=== PATIENT | female | born 1990 ===

== ENCOUNTER 2021-05-17 15:13 | Outpatient (CLI) | payer OTHER | END 2021-05-17 16:00 | disposition home or self-care (01) | LOC: PRENATAL 15:13 | PROVIDERS: ATTEND Obstetrics & Gynecology Maternal & Fetal Medicine | DX: O35.0XX1 Maternal care for (suspected) central nervous system malformation in fetus, fetus 1 (principal); O35.3XX1 Maternal care for (suspected) damage to fetus from viral disease in mother, fetus 1; O98.512 Other viral diseases complicating pregnancy, second trimester; O24.410 Gestational diabetes mellitus in pregnancy, diet controlled; Z36.89 Encounter for other specified antenatal screening; Z3A.25 25 weeks gestation of pregnancy ==

== ENCOUNTER 2021-06-29 11:14 | Outpatient (CLI) | payer OTHER | END 2021-06-29 11:52 | disposition home or self-care (01) | LOC: PRENATAL 11:14 | PROVIDERS: ATTEND Obstetrics & Gynecology Maternal & Fetal Medicine | DX: O26.843 Uterine size-date discrepancy, third trimester (principal); O24.410 Gestational diabetes mellitus in pregnancy, diet controlled; Z36.89 Encounter for other specified antenatal screening; Z3A.30 30 weeks gestation of pregnancy ==

== ENCOUNTER 2021-08-08 15:49 | Outpatient (CLI) | payer OTHER | END 2021-08-08 17:10 | disposition home or self-care (01) | LOC: PRENATAL 15:49 | PROVIDERS: ATTEND Obstetrics & Gynecology Maternal & Fetal Medicine | DX: O26.843 Uterine size-date discrepancy, third trimester (principal); O24.410 Gestational diabetes mellitus in pregnancy, diet controlled; O36.8131 Decreased fetal movements, third trimester, fetus 1; O35.0XX1 Maternal care for (suspected) central nervous system malformation in fetus, fetus 1; Z36.89 Encounter for other specified antenatal screening; Z3A.37 37 weeks gestation of pregnancy ==

== ENCOUNTER 2021-08-19 11:15 | Inpatient (IN) | payer OTHER ==
[~2021-08-19] VITALS: Ht 170.2 cm; Wt 3.2 kg
[2021-08-29] MEDS ORDERED: PRENATAL CAPLE1 EAC1 PO (08:03)
[2021-08-29] MEDS ORDERED: FOLIC ACID0.8 M1 PO (08:04)
== END 2021-09-01 20:13 | disposition home or self-care (01) | DRG 788 ==
LOC: LDR 08-29 07:34 → SURG-SUITE 08-29 07:34 → SURH 08-29 11:15 → SURG-SUITE 08-29 18:30
PROVIDERS: ADMIT Obstetrics & Gynecology; ATTEND Obstetrics & Gynecology
PROC: 4A1HXCZ Monitoring of Products of Conception, Cardiac Rate, External Approach (ICD-10-PCS; 2021-08-29)
PROC: 3E033VJ Introduction of Other Hormone into Peripheral Vein, Percutaneous Approach (ICD-10-PCS; 2021-08-29)
PROC: 10D00Z1 Extraction of Products of Conception, Low, Open Approach (ICD-10-PCS; principal; 2021-08-29 17:00)
DX: O61.0 Failed medical induction of labor (principal); O62.0 Primary inadequate contractions; O24.410 Gestational diabetes mellitus in pregnancy, diet controlled; Z3A.38 38 weeks gestation of pregnancy; Z37.0 Single live birth; Z20.822 Contact with and (suspected) exposure to COVID-19

== ENCOUNTER 2022-02-27 21:20 | Emergency (ER) | payer OTHER ==
[~2022-02-27] VITALS: Ht 167.6 cm; Wt 70.8 kg
[~2022-02-27 21:20] MED LIST: FOLIC ACID0.8 M1 PO; PRENATAL CAPLE1 EAC1 PO
[2022-02-28] MEDS ORDERED: CIPRO500 MG PO (04:45)
[2022-02-28] MEDS ORDERED: NAPROXEN375 MG PO (04:45)
== END 2022-02-28 05:01 | disposition home or self-care (01) ==
LOC: ER 21:20
DX: R10.2 Pelvic and perineal pain (principal); N39.0 Urinary tract infection, site not specified; Z88.2 Allergy status to sulfonamides

== ENCOUNTER 2022-05-29 22:12 | Emergency (ER) | payer OTHER ==
[~2022-05-29] VITALS: Ht 170.2 cm; Wt 64.4 kg
[~2022-05-29 22:12] MED LIST changes: +CIPRO500 MG PO; +NAPROXEN375 MG PO
[2022-05-30] MEDS ORDERED: PEPCID AC20 MG PO (07:19)
[2022-05-30] MEDS ORDERED: DICLOFENAC POTA25 MG PO (07:19)
[2022-05-30] MEDS ORDERED: LEVSIN0.125 MG PO (07:19)
[2022-05-30] MEDS ORDERED: LEVOFLOXACIN500 MG PO (07:22)
== END 2022-05-30 07:31 | disposition home or self-care (01) ==
LOC: ER 22:12
DX: I88.0 Nonspecific mesenteric lymphadenitis (principal); N39.0 Urinary tract infection, site not specified; Z88.2 Allergy status to sulfonamides